=== PATIENT | female | born 1945 | race Caucasian/White ===

== ENCOUNTER 2018-04-09 13:37 | Inpatient (IN) | payer MEDICARE, OTHER ==
[~2018-04-09] VITALS: Ht 152.4 cm; Wt 67.2 kg
[~2018-04-09 13:37] MED LIST: METF-480; QUIN5TAB
--- NOTE | 2018-04-09 14:37 | ERD ---
ER Documentation Chief Complaint Chief Complaint cp with left arm pain x today HPI The patient is a 73-year-old female, presenting to the ER because of chronic left-sided chest pain radiating down to her left upper extremity for more than 6 months, worse last night. 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 Nicholas today who sent her to emergency department. She has had a cold for the last 4 days, denies fever, chills, neck pain, chest pain with vomiting/radiation/exertion/diaphoresis, complains of chronic left upper quadrant abdominal pain, denies dysuria, diarrhea, constipation. She does not smoke nor drink Past medical history: Hypertension, diabetes mellitus Past surgical history: Hysterectomy ROS All systems reviewed and are negative except as per history of present illness. Medications Home Meds Reported Medications Quinapril Hcl (Accupril) 5 Mg Tablet, 2X DAILY 10/20/10 Metformin* (Glucophage*) 850 Mg Tablet, DAILY 10/20/10 Allergies Allergies: Coded Allergies: acetaminophen (Verified Adverse Reaction, Mild, 10/20/10) PMhx/Soc History of Surgery: No Anesthesia Reaction: No Hx Neurological Disorder: No Hx Respiratory Disorders: No Hx Cardiac Disorders: Yes (HTN) Hx Psychiatric Problems: No Hx Miscellaneous Medical Probl: No Hx Alcohol Use: No Hx Substance Use: No Hx Tobacco Use: No Physical Exam Vitals Vital Signs Date Temp Pulse Resp B/P (MAP) Pulse Ox O2 O2 Flow FiO2 Time Delivery Rate 04/09/18 101 16 113/51 98 Room Air 18:11 (71) 04/09/18 112 16 91/63 (72) 99 Room Air 15:52 04/09/18 98.9 130 24 134/71 96 13:46 (92) Physical Exam Const: No acute distress. Head: Atraumatic. Eyes: Normal Conjunctiva. ENT: Normal External Ears, Nose and Mouth. Neck: Full range of motion. No meningismus. Resp: Clear to auscultation bilaterally. Cardio: Regular tachycardic Abd: Soft, non distended, normal bowel sounds, mild left upper quadrant discomfort, no rigidity/rebound/CVA tenderness Skin: No petechiae or rashes. Back: No midline or flank tenderness. Ext: No cyanosis, or edema. Neur: Awake and alert. No focal deficit Psych: Normal Mood and Affect. Result Diagram: 04/09/18 1507 04/09/18 1507 Results 24 hrs Laboratory Tests Test 04/09/18 15:07 04/09/18 15:26 White Blood Count 12.8 10^3/ul Red Blood Count 4.60 10^6/ul Hemoglobin 13.4 g/dl Hematocrit 40.9 % Mean Corpuscular Volume 88.9 fl Mean Corpuscular Hemoglobin 29.1 pg Mean Corpuscular Hemoglobin Concent 32.8 g/dl Red Cell Distribution Width 13.9 % Platelet Count 313 10^3/UL Mean Platelet Volume 10.3 fl Immature Granulocytes % 0.300 % Neutrophils % 85.8 % Lymphocytes % 10.2 % Monocytes % 3.3 % Eosinophils % 0.2 % Basophils % 0.2 % Nucleated Red Blood Cells % 0.0 /100WBC Immature Granulocytes # 0.040 10^3/ul Neutrophils # 11.0 10^3/ul Lymphocytes # 1.3 10^3/ul Monocytes # 0.4 10^3/ul Eosinophils # 0.0 10^3/ul Basophils # 0.0 10^3/ul Nucleated Red Blood Cells # 0.0 10^3/ul Prothrombin Time 11.9 Sec Prothrombin Time Ratio 0.9 INR International Normalized Ratio 0.87 Activated Partial Thromboplast Time 31.8 Sec D-Dimer 974.87 ng/ml D-Dimer Comment Sodium Level 140 mmol/L Potassium Level 4.2 mmol/L Chloride Level 103 mmol/L Carbon Dioxide Level 23 mmol/L Anion Gap 14 Blood Urea Nitrogen 18 mg/dl Creatinine 0.56 mg/dl Est Glomerular Filtrat Rate mL/min mL/min Glucose Level 145 mg/dl Calcium Level 9.7 mg/dl Total Bilirubin 0.2 mg/dl Direct Bilirubin 0.00 mg/dl Indirect Bilirubin 0.2 mg/dl Aspartate Amino Transf (AST/SGOT) 34 IU/L Alanine Aminotransferase (ALT/SGPT) 30 IU/L Alkaline Phosphatase 129 IU/L Troponin I < 0.012 ng/ml B-Type Natriuretic Peptide 76 PG/ML Total Protein 8.8 g/dl Albumin 4.6 g/dl Globulin 4.20 g/dl Albumin/Globulin Ratio 1.09 Bedside Urine pH (LAB) 6.5 Bedside Urine Protein (LAB) 1+ Bedside Urine Glucose (UA) Negative Bedside Urine Ketones (LAB) Trace Bedside Urine Blood 1+ Bedside Urine Nitrite (LAB) Negative Bedside Urine Leukocyte Esterase (L Negative Current Medications Medications Dose Sig/Mary Start Time Status Last (Trade) Ordered Route PRN Stop Time Admin Dose Reason Admin Aspirin 324 mg ONCE ONCE 04/09/18 DC 04/09/18 (Aspirin) PO 15:00 04/09/18 15:17 15:01 1 inch ONCE ONCE 04/09/18 DC 04/09/18 Nitroglycerin TD 15:00 04/09/18 15:17 15:01 (Nitroglyceri n 2% Oint) Sodium 1,000 ml @ Q1H ONCE 04/09/18 DC 04/09/18 Chloride 1,000 mls/hr IV 16:00 04/09/18 16:10 16:59 Iohexol 100 ml @ ud STK-MED 04/09/18 DC 04/09/18 ONCE .ROUTE 16:52 04/09/18 17:06 16:53 IV Flush 10 ml STK-MED 04/09/18 DC 04/09/18 (NS 10 ml) ONCE .ROUTE 16:52 04/09/18 17:06 16:53 Sodium 100 ml @ ud STK-MED 04/09/18 DC 04/09/18 Chloride ONCE .ROUTE 16:52 04/09/18 17:06 16:53 Procedures/[place] [address] Radiology Main Line: [phone] DIAGNOSTIC IMAGING REPORT Patient: TU HERNANDEZ : 1945 Age: 73 Sex: F MR #: [id number] DOS: 04/09/18 1617 Ordering MD: RITA COSME MD Location: E/R Room/Bed: PROCEDURE: CTA Chest. CLINICAL INDICATION: Chest pain TECHNIQUE: The study was performed utilizing a multidetector CT scanner. Direct spiral 1 mm axial sections were obtained from the thoracic inlet to the upper abdomen with the use of 100 cc of Omnipaque 350 nonionic intravenous contrast material and reformatted at 3 mm. Coronal, sagittal and 3-D angiographic reformations were obtained. The images were reviewed on a PACS workstation. CT D I 34 mCi Dose 444 mGy/cm Individualized dose optimization technique was used for the performance of this exam. This included 1. Automated exposure control. 2. Adjustment of the mA and / or kV according to the patient's size. 3. Use of iterative reconstruction technique. COMPARISON: No prior studies are available for comparison. FINDINGS: There is no central or peripheral pulmonary embolism. Thoracic aorta is normal with no dissection or aneurysm. No lung infiltrate or mass is seen. There is no hilar or mediastinal adenopathy or mass. Calcified nonenlarged right hilar nodes are seen. There is a hiatal hernia. Noted are coronary artery calcifications. There is fibronodular scarring with bronchiectasis in the superior segment of the right lower lobe. No pleural or pericardial effusion is visualized. There is no pneumothorax. No upper abdominal or adrenal mass is present. Noted is fatty infiltration of the liver. The osseous structures appear normal. IMPRESSION: No pulmonary embolism. No thoracic aortic aneurysm or dissection. No pneumonia. Old granulomatous disease. Fibronodular scarring superior segment right lower lobe. Hiatal hernia. Fatty liver. Coronary artery calcifications. .Omero Garcia MD, MD Date Time Electronically viewed and signed by .Omero Garcia MD, MD on 04/09/2018 17:35 .A/ CC: RITA COSME MD [id number] [place] [id number] Radiology Main Line: [phone] DIAGNOSTIC IMAGING REPORT Patient: TU HERNANDEZ : 1945 Age: 73 Sex: F MR #: [id number] DOS: 04/09/18 1455 Ordering MD: RITA COSME MD Location: E/R Room/Bed: PROCEDURE: XR Chest. CLINICAL INDICATION: Shortness of breath TECHNIQUE: Single frontal view of the chest was obtained COMPARISON: None FINDINGS: The heart and mediastinum are within normal limits. There is a right lower lobe calcified granuloma measuring 10 mm. There is no focal infiltrate. There is no pleural effusion or pneumothorax. RPTAT: AA IMPRESSION: No acute disease. Small right lower lobe calcified granuloma. .Jeancarlos Bryant MD, Date Time Electronically viewed and signed by .Jeancarlos Bryant MD, on 04/09/2018 15:38 .S/ CC: RITA COSME MD [id number] EKG: Read by emergency physician Rate/Rhythm: Sinus tachycardia 119 beats/min QRS, ST, T-waves: No ST elevation, no T inversion Impression: Abnormal EKG MEDICAL MAKING DECISION: The patient is a 73-year-old, presenting with acute on chronic chest pain with tachycardia, concerning for acute ACS. She was treated with aspirin 325 mg p.o. and 1 inch of nitroglycerin ointment to the chest wall for acute chest pain with good response. The differential diagnoses considered include but are not limited to pericardial effusion, acute coronary syndrome, acute myocardial infarction, pericarditis, pulmonary embolism, aortic dissection, pneumonia, pleural effusion, pneumothorax, GERD, chest wall pain. Departure Diagnosis: Primary Impression: Chest pain Additional Impressions: Hematuria Hiatal hernia Condition: Stable Comments I have paged her new autos delivery driver Dr. Nicholas I discussed the findings with the patient. I discussed the patient with the hospitalist Dr Villarreal . who was made aware of the lab, the treatment, the patient condition. The patient is admitted to [facility] Disclaimer: Inadvertent spelling and grammatical errors are likely due to EHR/dictation software use and do not reflect on the overall quality of patient care. Also, please note that the electronic time recorded on this note does not necessarily reflect the actual time of the patient encounter. RITA COSME MD Apr 09, 2018 14:37
[2018-04-09] MEDS ORDERED: ASPIRIN 81 MG TAB PO ONE (15:00)
[2018-04-09] MEDS ORDERED: NITROGLYCERIN 2% 1 GM OINT PKT TD ONE (15:00)
[2018-04-09] MEDS ORDERED: SOD CHLORIDE 0.9% 1,000 ML IV ONE (16:00)
[2018-04-09] MEDS ORDERED: SOD CHLORIDE 0.9% 100 ML ONE (16:52)
[2018-04-09] MEDS ORDERED: IOHEXOL 100 ML ONE (16:52)
[2018-04-09] MEDS ORDERED: NACL 0.9% 3 ML SYG IV SCH (19:30)
[2018-04-09] MEDS ORDERED: DOCUSATE SODIUM 100 MG CAP PO PRN (19:30)
[2018-04-09] MEDS ORDERED: LORAZEPAM 4 MG/ML VIAL IV PRN (19:30)
[2018-04-09] MEDS ORDERED: MAGNESIUM HYDROXIDE 30ML CUP PO PRN (19:30)
[2018-04-09] MEDS ORDERED: ONDANSETRON 4 MG INJ IV PRN (19:30)
[2018-04-09] MEDS ORDERED: NITROGLYCERIN (SL) 0.4 MG TAB SL PRN (19:30)
[2018-04-09] MEDS ORDERED: KETOROLAC 15 MG INJ IV PRN (19:30)
[2018-04-09 20:00] VITALS: PULSE 91
--- NOTE | 2018-04-09 20:09 | HP ---
Date/Time of Note Date/Time of Note DATE: 04/09/18 TIME: 20:09 Assessment/Plan VTE Prophylaxis Pharmacological prophylaxis: LMWH Lines/Catheters IV Catheter Type (from Nrs): Saline Lock Assessment/Plan Hospital Course This is a 73-year female being admitted to the telemetry floor for observation for: #1 chest pain: Rule out ACS versus anginal equivalent: Patient has had persistent symptoms for 6 months however yesterday her symptoms got worse. EKG at the current time is nonischemic, CT of the chest did not show any signs of pulmonary embolism. Will trend cardiac enzymes x3, will check an echocardiogram. Patient's electronics maintenance technician has been consulted by the ED. #2 Diabetes mellitus: We will check hemoglobin A 1C, insulin sliding scale, hold home metformin #3 hypertension: PRN hydralazine, will need to confirm patient's home blood pressure medication dosage #4 hyperlipidemia: We will check lipid panel #5 DVT GI prophylaxis: SCDs, no GI prophylaxis indicated Further treatment strategy will be implemented as per the clinical course Result Diagram: 04/09/18 1507 04/09/18 1507 Results 24hrs Laboratory Tests Test 04/09/18 15:07 04/09/18 15:26 White Blood Count 12.8 H Red Blood Count 4.60 Hemoglobin 13.4 Hematocrit 40.9 Mean Corpuscular Volume 88.9 Mean Corpuscular Hemoglobin 29.1 Mean Corpuscular Hemoglobin Concent 32.8 Red Cell Distribution Width 13.9 Platelet Count 313 Mean Platelet Volume 10.3 Immature Granulocytes % 0.300 Neutrophils % 85.8 H Lymphocytes % 10.2 L Monocytes % 3.3 Eosinophils % 0.2 Basophils % 0.2 Nucleated Red Blood Cells % 0.0 Immature Granulocytes # 0.040 H Neutrophils # 11.0 H Lymphocytes # 1.3 Monocytes # 0.4 Eosinophils # 0.0 Basophils # 0.0 Nucleated Red Blood Cells # 0.0 Prothrombin Time 11.9 Prothrombin Time Ratio 0.9 INR International Normalized Ratio 0.87 Activated Partial Thromboplast Time 31.8 D-Dimer 974.87 H D-Dimer Comment Sodium Level 140 Potassium Level 4.2 Chloride Level 103 Carbon Dioxide Level 23 Anion Gap 14 H Blood Urea Nitrogen 18 Creatinine 0.56 Est Glomerular Filtrat Rate mL/min Glucose Level 145 Hemoglobin A1c 8.1 H Calcium Level 9.7 Total Bilirubin 0.2 Direct Bilirubin 0.00 Indirect Bilirubin 0.2 Aspartate Amino Transf (AST/SGOT) 34 Alanine Aminotransferase (ALT/SGPT) 30 Alkaline Phosphatase 129 H Troponin I < 0.012 B-Type Natriuretic Peptide 76 Total Protein 8.8 H Albumin 4.6 Globulin 4.20 H Albumin/Globulin Ratio 1.09 Bedside Urine pH (LAB) 6.5 Bedside Urine Protein (LAB) 1+ H Bedside Urine Glucose (UA) Negative Bedside Urine Ketones (LAB) Trace H Bedside Urine Blood 1+ H Bedside Urine Nitrite (LAB) Negative Bedside Urine Leukocyte Esterase (L Negative HPI/ROS Admit Date/Time Admit Date/Time Hx of Present Illness Chief complaint: Left-sided chest pain x6 The patient is a 73-year-old female, presenting to the ER because of chronic left-sided chest pain radiating down to her left upper extremity for more than 6 months, worse last night. She went to see her electronics maintenance technician Dr. Nicholas today who sent her to emergency department. She has had a cold for the last 4 days, denies fever, chills, neck pain, chest pain with vomiting/r adiation/exertion/diaphoresis, complains of chronic left upper quadrant abdominal pain, denies dysuria, diarrhea, constipation. Allergies: Acetaminophen Medications: See May Const: As per HPI Eyes : No pain discharge or redness or change in visual acuity ENT: No pain, sore throat, congestion, congestion, dysphagia or discharge Respiratory: No shortness of breath, cough, sputum, wheezing, or pleuritic pain Cardiovascular: As per HPI GI : no change in appetite, abdominal pain, nausea, vomiting, diarrhea, constipation, or change in the color his stool Genitourinary: No dysuria, hematuria, flank pain , discharge or CVA tenderness Musculoskeletal: No joint pain, back pain, neck pain, restricted range of motion in neck or joints Skin: No rash, bruising or hives Neuro: No headache, dizziness, syncope, seizure, focal weakness Endocrine: No polyuria, polydipsia, temperature intolerance Psych: No hallucination, depression, anxiety or suicidal ideation PMH/Family/Social Past Medical History Hyperlipidemia, hypertension, diabetes mellitus Medications Current Medications IV Flush (NS 3 ml) 3 ml PER PROTOCOL IV ; Start 04/09/18 at 19:30 Lorazepam (Ativan) 0.5 mg Q6H PRN IV ANXIETY; Start 04/09/18 at 19:30 Ondansetron HCl (Zofran Inj) 4 mg Q6H PRN IV NAUSEA AND/OR VOMITING; Start 04/09/18 at 19:30 Aspirin (Aspirin) 81 mg DAILY PO ; Start 04/10/18 at 09:00 Nitroglycerin (Nitroglycerin (Sl Tab) 0.4 Mg) 1 tab Q5M PRN SL CHEST PAIN; Start 04/09/18 at 19:30 Docusate Sodium (Colace) 100 mg Q12H PRN PO CONSTIPATION; Start 04/09/18 at 19:30 Magnesium Hydroxide (Milk Of Mag) 30 ml DAILY PRN PO CONSTIPATION; Start 04/09/18 at 19:30 Pantoprazole (Protonix Iv) 40 mg DAILY@06 IV ; Start 04/10/18 at 06:00 Enoxaparin Sodium (Lovenox) 40 mg DAILY SC ; Start 04/10/18 at 09:00 Ketorolac Tromethamine (Toradol) 15 mg Q6H PRN IV PAIN LEVEL 1-3; Start 04/09/18 at 19:30; Stop 04/12/18 at 19:29 Tramadol HCl (Ultram) 50 mg Q6H PRN PO MODERATE PAIN LEVEL 4-6; Start 04/09/18 at 19:30 Atorvastatin Calcium (Lipitor) 10 mg HS PO ; Start 04/09/18 at 21:00 Coded Allergies: acetaminophen (Verified Adverse Reaction, Mild, 10/20/10) Past Surgical History Hysterectomy Family History Significant Family History: no pertinent family hx Social History Alcohol Use: none Smoking Status: Never smoker Drug Use: none Exam/Review of Systems Vital Signs Vitals Vital Signs Date Temp Pulse Resp B/P (MAP) Pulse Ox O2 O2 Flow FiO2 Time Delivery Rate 04/09/18 101 16 113/51 98 Room Air 18:11 (71) 04/09/18 98.9 13:46 Exam Exam General: Patient is a pleasant female currently lying in bed in no acute distress HEENT: Atraumatic, normocephalic. The pupils are equal, round and reactive. Extraocular motor are intact Neck: Supple with full range of motion. No rigidity or meningismus Chest: Nontender Lungs: Clear to auscultation bilaterally no crackles rales or wheezing Heart: Normal S1-S2, Regular rhythm and rate no murmurs appreciated auscultation Abdomen: Soft , nontender, nondistended , bowel sounds are present. No guarding no rebound tenderness , No masses or organomegaly. No costovertebral temporal angle mass Extremities: Normal to inspection, no edema no cyanosis Neurologic: Normal mental status, speech normal, cranial nerves II through XII are intact, motor and sensory are intact, no focal weakness Additional Comments PROCEDURE: CTA Chest. CLINICAL INDICATION: Chest pain TECHNIQUE: The study was performed utilizing a multidetector CT scanner. Direct spiral 1 mm axial sections were obtained from the thoracic inlet to the u pper abdomen with the use of 100 cc of Omnipaque 350 nonionic intravenous contrast material and reformatted at 3 mm. Coronal, sagittal and 3-D angiographic reformations were obtained. The images were reviewed on a PACS workstation. CT D I 34 mCi Dose 444 mGy/cm Individualized dose optimization technique was used for the performance of this exam. This included 1. Automated exposure control. 2. Adjustment of the mA and / or kV according to the patient's size. 3. Use of iterative reconstruction technique. COMPARISON: No prior studies are available for comparison. FINDINGS: There is no central or peripheral pulmonary embolism. Thoracic aorta is normal with no dissection or aneurysm. No lung infiltrate or mass is seen. There is no hilar or mediastinal adenopathy or mass. Calcified nonenlarged right hilar nodes are seen. There is a hiatal hernia. Noted are coronary artery calcifications. There is fibronodular scarring with bronchiectasis in the superior segment of the right lower lobe. No pleural or pericardial effusion is visualized. There is no pneumothorax. No upper abdominal or adrenal mass is present. Noted is fatty infiltration of the liver. The osseous structures appear normal. IMPRESSION: No pulmonary embolism. No thoracic aortic aneurysm or dissection. No pneumonia. Old granulomatous disease. Fibronodular scarring superior segment right lower lobe. Hiatal hernia. Fatty liver. Coronary artery calcifications. .Omero Garcia MD, Date Time Electronically viewed and signed by .Omero Garcia MD, on 04/09/2018 17:35 .A/ CC: RITA COSME MD [id number] PROCEDURE: XR Chest. CLINICAL INDICATION: Shortness of breath TECHNIQUE: Single frontal view of the chest was obtained COMPARISON: None FINDINGS: The heart and mediastinum are within normal limits. There is a right lower lobe calcified granuloma measuring 10 mm. There is no focal infiltrate. There is no pleural effusion or pneumothorax. RPTAT: AA IMPRESSION: No acute disease. Small right lower lobe calcified granuloma. .Jeancarlos Bryant MD, MD Date Time Electronically viewed and signed by .Jeancarlos Bryant MD, MD on 04/09/2018 15:38 .S/ CC: RITA COSME MD [id number] EKG: Rate/Rhythm: Sinus tachycardia 119 beats/min QRS, ST, T-waves: No ST elevation, no T inversion MIKE COSBY Apr 09, 2018 20:09
[2018-04-09 21:00] VITALS: BP 114/60; PULSE 91; RESP 20; Ht 152.4 cm; Wt 67.2 kg
[2018-04-09] MEDS ORDERED: ATORVASTATIN 10 MG TAB PO SCH (21:00)
[2018-04-09] MEDS: INSULIN ASPART [NOVOLOG] 3 ML PEN SC SCH (21:00)
[2018-04-09] MEDS ORDERED: DEXTROSE 50% 50 ML SYRINGE IV PRN ×2 (22:00)
[2018-04-09] MEDS ORDERED: GLUCOSE GEL 15 GRAM TUBE PO PRN ×2 (22:00)
[2018-04-09] MEDS ORDERED: GLUCAGON 1 MG INJ IM PRN (22:00)
[2018-04-09] MEDS ORDERED: GLUCOSE GEL 15 GRAM TUBE BUCCAL PRN (22:00)
[2018-04-10] VITALS (10 sets, daily range): BP systolic 109–134; BP diastolic 54–83; PULSE 62–112; RESP 18–20
[2018-04-10] MEDS: ACCU-CHEK XX SCH (02:00)
[2018-04-10] MEDS: traMADol 50 MG TAB PO PRN (05:31)
[2018-04-10] MEDS ORDERED: PANTOPRAZOLE 40 MG INJ IV SCH (06:00)
[2018-04-10] MEDS: INSULIN ASPART [NOVOLOG] 3 ML PEN SC SCH ×4 (08:00→21:20)
[2018-04-10] MEDS: ASPIRIN 81 MG TAB PO SCH (08:17)
[2018-04-10] MEDS: ENOXAPARIN 40 MG/0.4 ML SYG SC SCH (08:22)
--- NOTE | 2018-04-10 10:54 | PN ---
Date/Time of Note Date/Time of Note DATE: 04/10/18 TIME: 10:53 Assessment/Plan VTE Prophylaxis Risk score (from Nsg)>0 risk: 3 SCD applied (from Nsg): Yes Pharmacological prophylaxis: LMWH Lines/Catheters IV Catheter Type (from Nrsg): Saline Lock Urinary Cath still in place: No Assessment/Plan Hospital Course SUBJECTIVE: Lying in bed comfortably. No chest pain, palpitation, shortness of breath or others. OBJECTIVE: Vital signs-see below PHYSICAL EXAM: Constitutional: Well-developed, adequately built, lying in bed comfortably. Psych: nl mood/affect, no complaints Head: atraumatic, normocephalic Eyes: nl conjunctiva, nl sclera ENMT: mucosa pink and moist, nl external ears & nose Neck: non-tender, supple Respiratory: clear to auscultation, normal air movement Cardiovascular: nl pulses, regular rate and rhythm Gastrointestinal: non-tender, soft, bowel sounds active in all 4 quadrants. Musculoskeletal/extremities: nl extremities to inspection, motor strength equal bilaterally, no focal deficit. Normal pulses,no cyanosis, no edema. 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 1. Chest pain, rule out ACS versus other -Currently no symptoms -Serial troponins and EKG negative for acute ischemic events. -Continue aspirin prophylaxis and follow-up cardiology recommendations. 2. DMII -A1c 8.1 -Continue holding metformin. -Add Lantus. Continue ISS. DVT prophylaxis: Lovenox PUD prophylaxis: Not indicated CODE STATUS: Full code Diet: Low-cholesterol/low-fat diet. Disposition: Follow-up cardiology recommendations. Patient was seen in collaboration with Dr. Villarreal. Result Diagram: 04/10/18 0533 04/10/1833 Results 24hrs Laboratory Tests Test 04/09/18 15:07 04/09/18 15:26 04/09/18 21:20 04/09/18 21:56 White Blood Count 12.8 H Red Blood Count 4.60 Hemoglobin 13.4 Hematocrit 40.9 Mean Corpuscular Volume 88.9 Mean Corpuscular 29.1 Hemoglobin Mean Corpuscular 32.8 Hemoglobin Concent Red Cell Distribution 13.9 Width Platelet Count 313 Mean Platelet Volume 10.3 Immature Granulocytes % 0.300 Neutrophils % 85.8 H Lymphocytes % 10.2 L Monocytes % 3.3 Eosinophils % 0.2 Basophils % 0.2 Nucleated Red Blood 0.0 Cells % Immature Granulocytes # 0.040 H Neutrophils # 11.0 H Lymphocytes # 1.3 Monocytes # 0.4 Eosinophils # 0.0 Basophils # 0.0 Nucleated Red Blood 0.0 Cells # Prothrombin Time 11.9 Prothrombin Time Ratio 0.9 INR International 0.87 Normalized Ratio Activated 31.8 Partial Thromboplast Time D-Dimer 974.87 H D-Dimer Comment Sodium Level 140 Potassium Level 4.2 Chloride Level 103 Carbon Dioxide Level 23 Anion Gap 14 H Blood Urea Nitrogen 18 Creatinine 0.56 Est Glomerular Filtrat Rate mL/min Glucose Level 145 Hemoglobin A1c 8.1 H Calcium Level 9.7 Total Bilirubin 0.2 Direct Bilirubin 0.00 Indirect Bilirubin 0.2 Aspartate Amino 34 Transf (AST/SGOT) Alanine 30 Aminotransferase (ALT/SG PT) Alkaline Phosphatase 129 H Troponin I < 0.012 < 0.012 B-Type Natriuretic 76 Peptide Total Protein 8.8 H Albumin 4.6 Globulin 4.20 H Albumin/Globulin Ratio 1.09 Thyroid Stimulating 2.420 Hormone (TSH) Bedside Urine pH (LAB) 6.5 Bedside Urine Protein 1+ H (LAB) Bedside Urine Glucose Negative (UA) Bedside Urine Ketones Trace H (LAB) Bedside Urine Blood 1+ H Bedside Urine Nitrite Negative (LAB) Bedside Urine Negative Leukocyte Esterase (L Creatine Kinase 62 Creatine Kinase Index 0.5 Creatinine Kinase MB 0.29 (Mass) Bedside Glucose 179 Test 04/10/18 00:11 04/10/18 05:33 04/10/18 07:55 Creatine Kinase 65 Creatine Kinase Index 0.6 Creatinine Kinase MB 0.37 (Mass) Troponin I < 0.012 White Blood Count 6.7 # Red Blood Count 3.83 L Hemoglobin 11.3 L Hematocrit 34.2 L Mean Corpuscular Volume 89.3 Mean Corpuscular 29.5 Hemoglobin Mean Corpuscular 33.0 Hemoglobin Concent Red Cell Distribution 14.2 Width Platelet Count 236 # Mean Platelet Volume 10.6 H Immature Granulocytes % 0.300 Neutrophils % 77.0 Lymphocytes % 16.5 Monocytes % 5.2 Eosinophils % 0.7 Basophils % 0.3 Nucleated Red Blood 0.0 Cells % Immature Granulocytes # 0.020 Neutrophils # 5.2 Lymphocytes # 1.1 Monocytes # 0.4 Eosinophils # 0.1 Basophils # 0.0 Nucleated Red Blood 0.0 Cells # Sodium Level 141 Potassium Level 3.9 Chloride Level 107 Carbon Dioxide Level 24 Anion Gap 10 Blood Urea Nitrogen 23 H Creatinine 0.50 Est Glomerular Filtrat Rate mL/min Glucose Level 151 Calcium Level 9.0 Magnesium Level 2.1 Triglycerides Level 166 H Cholesterol Level 175 LDL Cholesterol, 104 Calculated HDL Cholesterol 38 Cholesterol/HDL Ratio 4.6 Bedside Glucose 194 Exam/Review of Systems Vital Signs Vitals Vital Signs Date Temp Pulse Resp B/P (MAP) Pulse Ox O2 O2 Flow FiO2 Time Delivery Rate 04/10/18 85 08:22 04/10/18 98.4 18 116/55 96 Room Air 07:32 (75) Intake and Output 04/09/18 04/09/18 04/10/18 1515:00 23:00 07:00 IntakeIntake Total 250 ml BalanceBalance 250 ml Medications Medications Current Medications IV Flush (NS 3 ml) 3 ml PER PROTOCOL IV ; Start 04/09/18 at 19:30 Lorazepam (Ativan) 0.5 mg Q6H PRN IV ANXIETY; Start 04/09/18 at 19:30 Ondansetron HCl (Zofran Inj) 4 mg Q6H PRN IV NAUSEA AND/OR VOMITING; Start 04/09/18 at 19:30 Aspirin (Aspirin) 81 mg DAILY PO Last administered on 04/10/18at 08:17; Admin Dose 81 MG; Start 04/10/18 at 09:00 Nitroglycerin (Nitroglycerin (Sl Tab) 0.4 Mg) 1 tab Q5M PRN SL CHEST PAIN; Start 04/09/18 at 19:30 Docusate Sodium (Colace) 100 mg Q12H PRN PO CONSTIPATION; Start 04/09/18 at 19:30 Magnesium Hydroxide (Milk Of Mag) 30 ml DAILY PRN PO CONSTIPATION; Start 04/09/18 at 19:30 Pantoprazole (Protonix Iv) 40 mg DAILY@06 IV Last administered on 04/10/18at 05:30; Admin Dose 40 MG; Start 04/10/18 at 06:00 Enoxaparin Sodium (Lovenox) 40 mg DAILY SC Last administered on 04/10/18at 08:22; Admin Dose 40 MG; Start 04/10/18 at 09:00 Ketorolac Tromethamine (Toradol) 15 mg Q6H PRN IV PAIN LEVEL 1-3 Last administered on 04/09/18at 20:13; Admin Dose 15 MG; Start 04/09/18 at 19:30; Stop 04/12/18 at 19:29 Tramadol HCl (Ultram) 50 mg Q6H PRN PO MODERATE PAIN LEVEL 4-6 Last administered on 04/10/18at 05:31; Admin Dose 50 MG; Start 04/09/18 at 19:30 Atorvastatin Calcium (Lipitor) 10 mg HS PO Last administered on 04/09/18at 22:01; Admin Dose 10 MG; Start 04/09/18 at 21:00 Diagnostic Test (Pha) (Accu-Chek) 1 ea 02 XX ; Start 04/10/18 at 02:00 Insulin Aspart (Novolog Insulin Pen) NOVOLOG *MILD* ALGORITHM WITH MEALS BEDTIME SC ; Start 04/09/18 at 21:00 Miscellaneous Information 1 ea NOTE XX ; Start 04/09/18 at 22:00 Glucose (Glutose) 15 gm Q15M PRN PO DECREASED GLUCOSE; Start 04/09/18 at 22:00 Glucose (Glutose) 22.5 gm Q15M PRN PO DECREASED GLUCOSE; Start 04/09/18 at 22:00 Dextrose (D50w Syringe) 25 ml Q15M PRN IV DECREASED GLUCOSE; Start 04/09/18 at 22:00 Dextrose (D50w Syringe) 50 ml Q15M PRN IV DECREASED GLUCOSE; Start 04/09/18 at 22:00 Glucagon (Glucagen) 1 mg Q15M PRN IM DECREASED GLUCOSE; Start 04/09/18 at 22:00 Glucose (Glutose) 15 gm Q15M PRN BUCCAL DECREASED GLUCOSE; Start 04/09/18 at 22:00 Influenza Virus Vaccine Quadrival (Fluzone) 0.5 ml ONCE ONCE IM* ; Start 04/11/18 at 10:00; Stop 04/11/18 at 10:01 DANNA PASTRANA NP Apr 10, 2018 10:54
--- NOTE | 2018-04-10 16:25 | CONS ---
DATE OF ADMISSION: 04/09/2018 DATE OF CONSULTATION: 04/10/2018 TYPE OF CONSULTATION: Cardiology. REASON FOR CONSULTATION: Chest pain, assess for acute coronary syndrome. REQUESTING PROVIDER: Corina Pastrana NP, from the hospitalist service. HISTORY OF PRESENT ILLNESS: Ms. Pappas is a 73-year-old female with history of diabetes mellitus, dyslipidemia, who presents with complaints of substernal chest pain. The patient describes chest pain as a stabbing sensation occurring at rest and with exertion. 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 Upon arrival, temperature was 98.9, blood pressure 134/71, pulse 130, respiratory rate 24, satting 96%. The patient's labs were notable for white blood cell count of 12.8, hemoglobin of 13.4, platelet count 313, sodium of 140, potassium 4.2, creatinine 0.5, BUN 18, alkaline phosphatase 129, troponin negative, BNP 76, TSH of 2.42, INR of 0.87. UA is negative. The patient underwent a venous ultrasound revealing no evidence of DVT of the bilateral lower extremities. A chest x-ray revealing no acute disease, small right lower lobe calcified granuloma and a CTA of the chest revealed no central or peripheral pulmonary embolism. Thoracic aorta was normal with no dissection or aneurysm. No infiltrate. No mass is seen. No hilar or mediastinal adenopathy. No pericardial effusion. Fibronodular bronchiectasis in superior segment of the right lower lobe. The patient's electrocardiogram is not in chart for my review at this time. The patient was subsequently admitted to the floor and since admit to the floor, has had 2 further troponins returned negative for a total of 3 troponins although last 2 or 3 hours apart. The patient denies ongoing chest pain at this time. PAST MEDICAL HISTORY: As above in HPI. MEDICATIONS CURRENTLY IN HOSPITAL: 1. Aspirin 81 mg daily. 2. Lovenox 40 mg subQ daily. 3. Insulin sliding scale. 4. Lipitor 10 mg at bedtime. 5. Ativan. 6. Zofran. 7. Nitroglycerin. 8. Toradol. 9. Ultram. ALLERGIES: TYLENOL. SOCIAL HISTORY: No current tobacco, EtOH or illicit drug use. FAMILY HISTORY: No history of sudden cardiac or early CAD. REVIEW OF: As above in HPI. CONSTITUTIONAL: No fevers, chills. PULMONARY: No current shortness of breath. CARDIOVASCULAR: Intermittent chest pain. GASTROINTESTINAL: No vomiting. GENITOURINARY: No hematuria. MUSCULOSKELETAL: Degenerative joint disease. PSYCHIATRIC: The patient has depression. NEUROLOGICAL: No documented history of CVA. PHYSICAL EXAMINATION VITAL SIGNS: Temperature of 98.3, blood pressure most recently 124/83, pulse 62, respiratory rate 20, satting 96% on room air. GENERAL: The patient is alert, awake, in no acute distress. NECK: JVP is approximately 8 to 9 cm of water. CHEST: Fair air movement throughout. HEART: Regular rate and rhythm. Normal S1, S2, I/ systolic murmur, nondisplaced PMI. ABDOMEN: Positive bowel sounds, soft. EXTREMITIES: No significant pitting edema, 1+ pulses bilateral posterior tibial. LABORATORIES: Sodium 141, potassium 3.9, creatinine 0.5, BUN 23. White blood cell count 6.7, hemoglobin 11.3, platelet count 236. IMAGING STUDIES: As above in HPI. No further imaging studies for my review at this time. ELECTROCARDIOGRAM: No electrocardiograms for my review at this time. IMPRESSION: 1. Chest pain, assess for acute coronary syndrome with at this time atypical symptomatology for cardiac etiology. 2. Dyslipidemia. 3. Diabetes mellitus. RECOMMENDATIONS: 1. At this time, we would maintain the patient on telemetry monitoring to follow rhythm and rate control closely. 2. Continue the patient's aspirin for prophylactic cardiovascular events. 3. We will give patient some nitroglycerin and I agree with Toradol and therefore start the patient on NSAIDs and follow up symptomatology for possible costochondritis. 4. We will follow patient's 2D echo done for assessment of ejection fraction, wall motion, rule out any major valvular abnormalities. 5. We will send one final troponin to assure the patient has not had any acute coronary syndrome. 6. The patient is status post fasting lipid panel with an LDL of 104 and HDL of 38. We will have continue baseline statin at this time and increase it to 20. 7. Further recommendations pertaining to the care of this patient will be made after completion of studies including final troponin and 2D echo analysis as well as serial EKGs. Thank you for allowing me to take part in the care of this patient. I will continue to follow her very closely with you with further recommendations to be made as the patient progresses through her inpatient hospital clinical course. Dictated By: PANFILO MCLEAN/CAMILLE Conf#: [id number] DID#: [id number] CC: RAJI MENDEZ MD; CORINA PASTRANA BOOKSTORE MANAGER;*EndCC* MTDD
[2018-04-10] MEDS ORDERED: IBUPROFEN 400 MG TAB PO ONE (16:37)
[2018-04-10] MEDS: ACETAMINOPHEN 325 MG TAB PO PRN (16:40)
--- NOTE | 2018-04-10 17:39 | RADRPT ---
Echocardiogram Report Patient Name: TU HERNANDEZ Gender: Female Date: 1945 Study Date: 10-Apr-2018 Dot Etcher: TB Location: [id number] Ref. Physician: RAJI MENDEZ Quality: Adequate Procedures: Transthoracic echocardiogram with complete 2D, M-Mode, and doppler examination. Indications: Chest Pain. 2D/M Mode Doppler Measurement Value Normal Ranges Measurement Value Normal Ranges AoR Diam MM 3.6 cm AV Mean Humberto 0.9 m/sec ACS MM 1.9 cm AV Mean PG 4.0 mmHg LA/Ao MM 0.9 AV Peak Humberto 1.5 m/sec LA Dimen MM 3.4 cm AV Peak PG 8.0 mmHg LVIDd 2D 3.8 3.5 - 5.6 cm AV VTI 27.0 cm LVIDs 2D 2.6 2.1 - 4.1 cm LVOT Mean Humberto 0.9 m/sec LVPWd 2D 0.8 0.6 - 1.1 cm LVOT Mean PG 3.0 mmHg IVSd 2D 1.1 0.6 - 1.1 cm LVOT Peak Humberto 1.3 m/sec AoR Diam 2D 2.4 2.0 - 3.7 cm LVOT Peak PG 7.0 mmHg LA/Ao 2D 2 0 - 1 MV E Peak Humberto 0.8 m/sec EF 2D 61.0 50.0 - 65.0 % MV A Peak Humberto 1.1 m/sec LA Dimen 2D 3.6 2.3 - 4.0 cm MV E/A 0.7 IVC Diam 1.7 1.2 - 2.0 MV PHT 86.0 msec MV Decel Time 293 msec MV Decel [place] 3 Lat E` Humberto 0.1 m/sec Lateral E/E` 10.6 Med E` Humberto 0.1 m/sec MV E/A 0.7 MV PHT 86.0 msec MVA PHT 2.6 cm2 TR Peak Humberto 2.5 m/sec TR Peak PG 25.0 mmHg PV Peak Humberto 1.1 m/sec PV Peak PG 5.0 mmHg RVSP 28.0 mmHg RA Pressure 3.0 Findings Left Ventricle: Normal left ventricular systolic function. Normal left ventricular cavity size. Normal left ventricular wall thickness. Ejection fraction is visually estimated at 60 %. Right Ventricle: Not well visualized. Left Atrium: The left atrium is normal in size. Right Atrium: The right atrium is normal in size. Mitral Valve: Normal appearance and function of the mitral valve with trace physiologic regurgitation. Aortic Valve: Normal appearance of the aortic valve. No significant aortic stenosis or insufficiency. Tricuspid Valve: Normal appearance and function of the tricuspid valve with trace physiologic regurgitation. Normal right ventricular systolic pressure. Estimated peak PA systolic pressure 28 mmHg. Pulmonic Valve: Normal pulmonic valve appearance. Pericardium: Normal pericardium with no significant pericardial effusion. Aorta: Normal aortic root. IVC: Normal size and normal respiratory collapse consistent with normal right atrial pressure. Conclusions Normal left ventricular systolic function. Normal left ventricular cavity size. Normal left ventricular wall thickness. Ejection fraction is visually estimated at 60 %. Normal appearance and function of the mitral valve with trace physiologic regurgitation. Normal appearance and function of the tricuspid valve with trace physiologic regurgitation. Normal right ventricular systolic pressure. Estimated peak PA systolic pressure 28 mmHg. Electronically Signed By: Cory Mckoy 10-Apr-2018 17:38:32 -0800 Patient Name: TU HERNANDEZ Study Date: 10-Apr-2018 [id number]
[2018-04-10] MEDS: INSULIN GLARGINE [LANTus] (100 UNITS/ML) SYG SC SCH (20:00)
[2018-04-10] MEDS: ATORVASTATIN 20 MG TAB PO SCH (21:11)
[2018-04-11] VITALS (12 sets, daily range): BP systolic 114–134; BP diastolic 55–81; PULSE 69–95; RESP 18–20
[2018-04-11] MEDS: ACETAMINOPHEN 325 MG TAB PO PRN (00:26)
[2018-04-11] MEDS: ACCU-CHEK XX SCH (02:00)
[2018-04-11] MEDS: INSULIN ASPART [NOVOLOG] 3 ML PEN SC SCH ×4 (07:53→21:00)
[2018-04-11] MEDS: INSULIN GLARGINE [LANTus] (100 UNITS/ML) SYG SC SCH (07:53)
[2018-04-11] MEDS: ASPIRIN 81 MG TAB PO SCH (08:55)
[2018-04-11] MEDS: ENOXAPARIN 40 MG/0.4 ML SYG SC SCH (08:58)
[2018-04-11] MEDS ORDERED: INFLUENZA VIRUS VACCINE 0.5 ML (DISPENSING) IM* ONE (10:00)
[2018-04-11] MEDS ORDERED: REGADENOSON 0.4 MG/5 ML SYG ONE (11:18)
--- NOTE | 2018-04-11 11:53 | PN ---
Date/Time of Note Date/Time of Note DATE: 04/11/18 TIME: 11:51 Assessment/Plan VTE Prophylaxis Risk score (from Ns)>0 risk: 2 [place] [facility] [place]CD contraindicated: patient refusal Pharmacological prophylaxis: LMWH Lines/Catheters IV Catheter Type (from [facility]): Saline Lock Urinary Cath still in place: No Assessment/Plan Hospital Course SUBJECTIVE: Patient had on and off fevers, low-grade yesterday. No chest pain. No abdominal pain, nausea, vomiting, diarrhea, dysuria, hematuria or other symptoms. OBJECTIVE: Vital signs-see below PHYSICAL EXAM: Constitutional: Well-developed, adequately built, lying in bed comfortably. Psych: nl mood/affect, no complaints Head: atraumatic, normocephalic Eyes: nl conjunctiva, nl sclera ENMT: mucosa pink and moist, nl external ears & nose Neck: non-tender, supple Respiratory: clear to auscultation, normal air movement Cardiovascular: nl pulses, regular rate and rhythm Gastrointestinal: non-tender, soft, bowel sounds active in all 4 quadrants. Musculoskeletal/extremities: nl extremities to inspection, motor strength equal bilaterally, no focal deficit. Normal pulses,no cyanosis, no edema. 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 1. Chest pain, rule out ACS versus other -No further CP. -Serial troponins and EKG negative for acute ischemic events. -Plan is stress test today. -Continue aspirin prophylaxis and follow-up cardiology recommendations. 2. DMII -A1c 8.1 -Continue holding metformin. -Add Lantus. Continue ISS. 3. Mild low-grade fevers, likely viral. -Improved -Patient with no other symptoms, no leukocytosis. Pending blood cultures and repeat urine cultures. -No indication for antibiotic at this time. DVT prophylaxis: Lovenox PUD prophylaxis: Not indicated CODE STATUS: Full code Diet: Low-cholesterol/low-fat diet. Disposition: Follow-up cardiology recommendations. Follow-up blood cultures. DC planning in a.m. if negative blood cultures and negative stress of study. Patient was seen in collaboration with Dr. Casper Result Diagram: 04/11/18 0514 04/11/18 0514 Results 24hrs Laboratory Tests Test 04/10/18 15:05 04/10/18 17:15 04/10/18 18:30 04/10/18 21:10 Troponin I < 0.012 Bedside Glucose 161 201 Urine Color YELLOW Urine Clarity CLEAR Urine pH 5.0 Urine Specific [place] 1.019 Urine Ketones NEGATIVE Urine Nitrite NEGATIVE Urine Bilirubin NEGATIVE Urine Urobilinogen NEGATIVE Urine Leukocyte NEGATIVE Esterase Urine Microscopic RBC 1 Urine Microscopic WBC 1 Urine Mucus FEW A Urine Hemoglobin 1+ H Urine Glucose NEGATIVE Urine Total Protein NEGATIVE Test 04/11/18 05:14 04/11/18 07:45 White Blood Count 7.6 Red Blood Count 3.78 L Hemoglobin 11.2 L Hematocrit 33.5 L Mean Corpuscular 88.6 Volume Mean Corpuscular 29.6 Hemoglobin Mean Corpuscular 33.4 Hemoglobin Concent Red Cell Distribution 14.0 Width Platelet Count 218 Mean Platelet Volume 10.3 Immature Granulocytes 0.300 % Neutrophils % 76.0 Lymphocytes % 17.2 Monocytes % 5.5 Eosinophils % 0.7 Basophils % 0.3 Nucleated Red Blood 0.0 Cells % Immature Granulocytes 0.020 # Neutrophils # 5.8 Lymphocytes # 1.3 Monocytes # 0.4 Eosinophils # 0.1 Basophils # 0.0 Nucleated Red Blood 0.0 Cells # Sodium Level 140 Potassium Level 3.5 Chloride Level 104 Carbon Dioxide Level 24 Anion Gap 12 Blood Urea Nitrogen 20 Creatinine 0.47 Est Glomerular Filtrat Rate mL/min Glucose Level 162 Calcium Level 8.7 Magnesium Level 2.1 Bedside Glucose 180 Exam/Review of Systems Vital Signs Vitals Vital Signs Date Temp Pulse Resp B/P (MAP) Pulse Ox O2 O2 Flow FiO2 Time Delivery Rate 04/11/18 78 08:29 04/11/18 98.3 18 114/59 98 08:08 (77) 04/11/18 Room Air 04:06 Intake and Output 04/10/18 04/10/18 04/11/18 1414:59 22:59 06:59 IntakeIntake Total 350 ml 200 ml BalanceBalance 350 ml 200 ml Medications Medications Current Medications IV Flush (NS 3 ml) 3 ml PER PROTOCOL IV ; Start 04/09/18 at 19:30 Lorazepam (Ativan) 0.5 mg Q6H PRN IV ANXIETY; Start 04/09/18 at 19:30 Ondansetron HCl (Zofran Inj) 4 mg Q6H PRN IV NAUSEA AND/OR VOMITING; Start 04/09/18 at 19:30 Aspirin (Aspirin) 81 mg DAILY PO Last administered on 04/11/18at 08:55; Admin Dose 81 MG; Start 04/10/18 at 09:00 Nitroglycerin (Nitroglycerin (Sl Tab) 0.4 Mg) 1 tab Q5M PRN SL CHEST PAIN; Start 04/09/18 at 19:30 Docusate Sodium (Colace) 100 mg Q12H PRN PO CONSTIPATION; Start 04/09/18 at 19:30 Magnesium Hydroxide (Milk Of Mag) 30 ml DAILY PRN PO CONSTIPATION; Start 04/09/18 at 19:30 Enoxaparin Sodium (Lovenox) 40 mg DAILY SC Last administered on 04/11/18at 08:58; Admin Dose 40 MG; Start 04/10/18 at 09:00 Ketorolac Tromethamine (Toradol) 15 mg Q6H PRN IV PAIN LEVEL 1-3 Last administered on 04/09/18at 20:13; Admin Dose 15 MG; Start 04/09/18 at 19:30; Stop 04/12/18 at 19:29 Tramadol HCl (Ultram) 50 mg Q6H PRN PO MODERATE PAIN LEVEL 4-6 Last administered on 04/10/18at 05:31; Admin Dose 50 MG; Start 04/09/18 at 19:30 Diagnostic Test (Pha) (Accu-Chek) 1 ea 02 XX ; Start 04/10/18 at 02:00 Insulin Aspart (Novolog Insulin Pen) NOVOLOG *MILD* ALGORITHM WITH MEALS BEDTIME SC ; Start 04/09/18 at 21:00 Miscellaneous Information 1 ea NOTE XX ; Start 04/09/18 at 22:00 Glucose (Glutose) 15 gm Q15M PRN PO DECREASED GLUCOSE; Start 04/09/18 at 22:00 Glucose (Glutose) 22.5 gm Q15M PRN PO DECREASED GLUCOSE; Start 04/09/18 at 22:00 Dextrose (D50w Syringe) 25 ml Q15M PRN IV DECREASED GLUCOSE; Start 04/09/18 at 22:00 Dextrose (D50w Syringe) 50 ml Q15M PRN IV DECREASED GLUCOSE; Start 04/09/18 at 22:00 Glucagon (Glucagen) 1 mg Q15M PRN IM DECREASED GLUCOSE; Start 04/09/18 at 22:00 Glucose (Glutose) 15 gm Q15M PRN BUCCAL DECREASED GLUCOSE; Start 04/09/18 at 22:00 Insulin Glargine (Lantus) 10 units DAILY@0800 SC ; Start 04/10/18 at 20:00 Atorvastatin Calcium (Lipitor) 20 mg HS PO Last administered on 04/10/18at 21:11; Admin Dose 20 MG; Start 04/10/18 at 21:00 Acetaminophen (Tylenol Tab) 650 mg Q6H PRN PO MILD PAIN(1-3)OR ELEVATED TEMP Last administered on 04/11/18at 00:26; Admin Dose 650 MG; Start 04/10/18 at 16:00 DANNA PASTRANA NP Apr 11, 2018 11:52
--- NOTE | 2018-04-11 12:15 | CONS ---
Date/Time of Note Date/Time of Note DATE: 04/11/18 TIME: 12:09 Assessment/Plan Assessment/Plan Hospital Course IMPRESSION: 1. Chest pain, assess for acute coronary syndrome with at this time atypical symptomatology for cardiac etiology.-neg trop x 3/ NL EF 2. Dyslipidemia. 3. Diabetes mellitus. Recc: -Tele -Continue asa/statin -Lexiscan stress test today and if no ischemia then ok for d/c from cardiac standpoint Result Diagram: 04/11/18 0514 04/11/18 0514 Results 24hrs Laboratory Tests Test 04/10/18 15:05 04/10/18 17:15 04/10/18 18:30 04/10/18 21:10 Troponin I < 0.012 Bedside Glucose 161 201 Urine Color YELLOW Urine Clarity CLEAR Urine pH 5.0 Urine Specific Distant 1.019 Urine Ketones NEGATIVE Urine Nitrite NEGATIVE Urine Bilirubin NEGATIVE Urine Urobilinogen NEGATIVE Urine Leukocyte NEGATIVE Esterase Urine Microscopic RBC 1 Urine Microscopic WBC 1 Urine Mucus FEW A Urine Hemoglobin 1+ H Urine Glucose NEGATIVE Urine Total Protein NEGATIVE Test 04/11/18 05:14 04/11/18 07:45 White Blood Count 7.6 Red Blood Count 3.78 L Hemoglobin 11.2 L Hematocrit 33.5 L Mean Corpuscular 88.6 Volume Mean Corpuscular 29.6 Hemoglobin Mean Corpuscular 33.4 Hemoglobin Concent Red Cell Distribution 14.0 Width Platelet Count 218 Mean Platelet Volume 10.3 Immature Granulocytes 0.300 % Neutrophils % 76.0 Lymphocytes % 17.2 Monocytes % 5.5 Eosinophils % 0.7 Basophils % 0.3 Nucleated Red Blood 0.0 Cells % Immature Granulocytes 0.020 # Neutrophils # 5.8 Lymphocytes # 1.3 Monocytes # 0.4 Eosinophils # 0.1 Basophils # 0.0 Nucleated Red Blood 0.0 Cells # Sodium Level 140 Potassium Level 3.5 Chloride Level 104 Carbon Dioxide Level 24 Anion Gap 12 Blood Urea Nitrogen 20 Creatinine 0.47 Est Glomerular Filtrat Rate mL/min Glucose Level 162 Calcium Level 8.7 Magnesium Level 2.1 Bedside Glucose 180 Consultation Date/Type/Reason Admit Date/Time Apr 09, 2018 at 17:46 Initial Consult Date 04/10/18 Type of Consult cardiology Reason for Consultation Chest pain Requesting Provider: DANNA PASTRANA NP Exam/Review of Systems Vital Signs Vitals Vital Signs Date Temp Pulse Resp B/P (MAP) Pulse Ox O2 O2 Flow FiO2 Time Delivery Rate 04/11/18 78 08:29 04/11/18 98.3 18 114/59 98 08:08 (77) 04/11/18 Room Air 04:06 Intake and Output 04/10/18 04/10/18 04/11/18 1515:00 23:00 07:00 IntakeIntake Total 350 ml 200 ml BalanceBalance 350 ml 200 ml Exam Review of Systems: CONSTITUTIONAL: No fevers, chills. PULMONARY: No sob CARDIOVASCULAR:intermittent chest pain GASTROINTESTINAL: No nausea/vomiting. GENITOURINARY: No hematuria/dysuria. MUSCULOSKELETAL: No myagias/arthalgias. PSYCHIATRIC: The patient denies depression. NEUROLOGIC: No weakness Constitutional: alert Psych: no complaints Head: normocephalic ENMT: mucosa pink and moist Neck: supple, jvd (9 cm water) Respiratory: clear to auscultation Cardiovascular: regular rate and rhythm Gastrointestinal: soft Musculoskeletal: muscle tone (normal) Extremities: edema (none) Neurological: other (No focal deficits) Medications Medications Current Medications IV Flush (NS 3 ml) 3 ml PER PROTOCOL IV ; Start 04/09/18 at 19:30 Lorazepam (Ativan) 0.5 mg Q6H PRN IV ANXIETY; Start 04/09/18 at 19:30 Ondansetron HCl (Zofran Inj) 4 mg Q6H PRN IV NAUSEA AND/OR VOMITING; Start 04/09/18 at 19:30 Aspirin (Aspirin) 81 mg DAILY PO Last administered on 04/11/18at 08:55; Admin Dose 81 MG; Start 04/10/18 at 09:00 Nitroglycerin (Nitroglycerin (Sl Tab) 0.4 Mg) 1 tab Q5M PRN SL CHEST PAIN; Start 04/09/18 at 19:30 Docusate Sodium (Colace) 100 mg Q12H PRN PO CONSTIPATION; Start 04/09/18 at 19:30 Magnesium Hydroxide (Milk Of Mag) 30 ml DAILY PRN PO CONSTIPATION; Start 04/09/18 at 19:30 Enoxaparin Sodium (Lovenox) 40 mg DAILY SC Last administered on 04/11/18at 08:58; Admin Dose 40 MG; Start 04/10/18 at 09:00 Ketorolac Tromethamine (Toradol) 15 mg Q6H PRN IV PAIN LEVEL 1-3 Last administered on 04/09/18at 20:13; Admin Dose 15 MG; Start 04/09/18 at 19:30; Stop 04/12/18 at 19:29 Tramadol HCl (Ultram) 50 mg Q6H PRN PO MODERATE PAIN LEVEL 4-6 Last administered on 04/10/18at 05:31; Admin Dose 50 MG; Start 04/09/18 at 19:30 Diagnostic Test (Pha) (Accu-Chek) 1 ea 02 XX ; Start 04/10/18 at 02:00 Insulin Aspart (Novolog Insulin Pen) NOVOLOG *MILD* ALGORITHM WITH MEALS BEDTIME SC ; Start 04/09/18 at 21:00 Miscellaneous Information 1 ea NOTE XX ; Start 04/09/18 at 22:00 Glucose (Glutose) 15 gm Q15M PRN PO DECREASED GLUCOSE; Start 04/09/18 at 22:00 Glucose (Glutose) 22.5 gm Q15M PRN PO DECREASED GLUCOSE; Start 04/09/18 at 22:00 Dextrose (D50w Syringe) 25 ml Q15M PRN IV DECREASED GLUCOSE; Start 04/09/18 at 22:00 Dextrose (D50w Syringe) 50 ml Q15M PRN IV DECREASED GLUCOSE; Start 04/09/18 at 22:00 Glucagon (Glucagen) 1 mg Q15M PRN IM DECREASED GLUCOSE; Start 04/09/18 at 22:00 Glucose (Glutose) 15 gm Q15M PRN BUCCAL DECREASED GLUCOSE; Start 04/09/18 at 22:00 Insulin Glargine (Lantus) 10 units DAILY@0800 SC ; Start 04/10/18 at 20:00 Atorvastatin Calcium (Lipitor) 20 mg HS PO Last administered on 04/10/18at 21:11; Admin Dose 20 MG; Start 04/10/18 at 21:00 Acetaminophen (Tylenol Tab) 650 mg Q6H PRN PO MILD PAIN(1-3)OR ELEVATED TEMP Last administered on 04/11/18at 00:26; Admin Dose 650 MG; Start 04/10/18 at 16:00 PANFILO FLORES Apr 11, 2018 12:15
--- NOTE | 2018-04-11 13:23 | CARRPT ---
DATE OF PROCEDURE: 04/11/2018 TYPE OF PROCEDURE: Lexiscan Cardiolite stress test, electrocardiogram portion. INDICATION: Chest pain, assess for ischemia. BASELINE VITAL SIGNS AND ELECTROCARDIOGRAM: Pulse 71, blood pressure 132/70. Electrocardiogram reve als a sinus rhythm, rate of 85, normal axis, normal intervals, isolated T flattened in aVL. DESCRIPTION OF PROCEDURE: The patient underwent standard Lexiscan infusion over 10 seconds followed by radiolabeled tracer. The patient's test was stopped due to completion of protocol. Maximal achie laron blood pressure during the test was 127/63. Maximum heart rate during the test was 100. ELECTROCARDIOGRAM FINDINGS: The patient did not develop any new Lexiscan-induced ST or T-wave change s from baseline abnormalities. Rare PVCs. SYMPTOMS: The patient had no complaints of chest pain or shortness of breath during stress testing. IMPRESSION: 1. No Lexiscan-induced ST or T-wave changes from baseline abnormalities diagnostic for ischemia. 2. No complaints of chest pain or shortness of breath during stress test. 3. Positive premature ventricular contractions during stress testing rarely. 4. Report of nuclear images to follow in separate dictation. Dictated By: PANFILO MCLEAN/CAMILLE Conf#: [id number] DID#: [id number] CC: RAJI MENDEZ MD; DANNA PASTRANA NP;*End*
[2018-04-11] MEDS: ATORVASTATIN 20 MG TAB PO SCH (21:15)
[2018-04-12] VITALS (10 sets, daily range): BP systolic 109–129; BP diastolic 59–80; PULSE 66–84; RESP 20
[2018-04-12] MEDS: traMADol 50 MG TAB PO PRN ×2 (01:30→14:11)
[2018-04-12] MEDS: ACCU-CHEK XX SCH (02:00)
[2018-04-12] MEDS: INSULIN GLARGINE [LANTus] (100 UNITS/ML) SYG SC SCH (07:53)
[2018-04-12] MEDS: INSULIN ASPART [NOVOLOG] 3 ML PEN SC SCH ×2 (07:53→12:00)
[2018-04-12] MEDS: ASPIRIN 81 MG TAB PO SCH (09:07)
[2018-04-12] MEDS: ENOXAPARIN 40 MG/0.4 ML SYG SC SCH (09:09)
--- NOTE | 2018-04-12 10:15 | PDOCDIS ---
Discharge Instructions CONDITION [id number] Patient Condition: [id number] Stable HOME CARE INSTRUCTIONS: [id number] Special Diet: Ltohi0s CARB CONTROL FOLLOW UP/APPOINTMENTS Follow-up Plan Follow-up with primary care physician and manager talent after discharge. DANNA PASTRANA NP Apr 12, 2018 10:15
[2018-04-12] MEDS ORDERED: ATOR20TA65 PO (10:17)
[2018-04-12] MEDS ORDERED: ASPI-831 PO (10:17)
--- NOTE | 2018-04-12 10:25 | DS ---
Date/Time of Note Date/Time of Note DATE: 04/12/18 TIME: 10:23 Discharge Summary Admission/Discharge Info Admit Date/Time Apr 11, 2018 at 11:49 Discharge Date/Time Discharge Diagnosis 1. Chest pain,likely musculoskeletal-ACS ruled out. 2. DMII Consults ,cardiology Procedures 04/11/18 Lexiscan SPECT IMPRESSION: 1. No evidence of perfusion defects. 2. No wall motion abnormalities. 3. The left ventricle ejection fraction at stress is greater than 70%. A call report was made to Dr. Mckoy at 02:53 p.m. on April 11, 2018. 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 Patient had cardiology evaluation. Patient was continued on aspirin and statin. Patient had Lexiscan stress test on 04/11/2018 with no evidence of reversible ischemia. Patient was cleared from cardiology standpoint for outpatient follow- up. Patient with stable vital signs, labs. No further chest pain. She was instructed to follow-up with primary care physician and panel cutter as outpatient. Most likely patient chest pain is secondary to costochondritis. Approximately 60 m spent on coordinating the discharge on this patient. Patient is seen in collaboration with Dr. Shirley. Home Meds Active Scripts Aspirin (Aspirin) 81 Mg Chew, 81 MG PO DAILY, #30 TAB Prov:PASTRANADANNA V. FISHING TOOL TECHNICIAN [employer] 04/12/18 Atorvastatin Calcium (Atorvastatin Calcium) 20 Mg Tablet, 20 MG PO HS, #30 TAB Prov:PASTRANA,DANNA V. FISHING TOOL TECHNICIAN [employer] WELL 04/12/18 Reported Medications Quinapril Hcl (Accupril) 5 Mg Tablet, 2X DAILY 10/20/10 Metformin* (Glucophage*) 850 Mg Tablet, DAILY 10/20/10 Follow-up Plan Follow-up with primary care physician and panel cutter after discharge. Primary Care Provider [facility] Pending Labs Laboratory Tests Test 04/11/18 17:03 04/11/18 21:12 04/12/18 05:23 04/12/18 07:52 Bedside 146 142 155 Glucose mg/dL (70-220) mg/dL (70-220) mg/dL (70-220) White Blood 6.3 Count 10^3/ul (4.8-1 0.8) Red Blood 3.73 Count 10^6/ul (4.20- 5.40) Hemoglobin 11.0 g/dl (12.0-16. 0) Hematocrit 33.1 % (37.0-47.0) Mean 88.7 Corpuscular fl (82.0-101.0 Volume ) Mean 29.5 Corpuscular pg (29.0-33.0) Hemoglobin Mean 33.2 Corpuscular g/dl (32.0-37. Hemoglobin Conc 0) ent Red Cell 13.8 Distribution % (11.5-14.5) Width Platelet Count 233 10^3/UL (140-4 15) Mean Platelet 10.5 Volume fl (7.4-10.4) Immature 0.500 Granulocytes % % (0.001-0.429 ) Neutrophils % 62.1 % (39.0-77.0) Lymphocytes % 27.9 % (15.0-51.0) Monocytes % 7.0 % (0.0-11.0) Eosinophils % 2.2 % (0.0-7.0) Basophils % 0.3 % (0.0-2.0) Nucleated Red 0.0 Blood Cells % /100WBC (0.0-0 .0) Immature 0.030 Granulocytes # 10^3/ul (0.0-0 .031) Neutrophils # 3.9 10^3/ul (1.6-7 .5) Lymphocytes # 1.8 10^3/ul (0.8-2 .9) Monocytes # 0.4 10^3/ul (0.3-0 .9) Eosinophils # 0.1 10^3/ul (0.0-0 .5) Basophils # 0.0 10^3/ul (0.0-0 .1) Nucleated Red 0.0 Blood Cells # 10^3/ul (0.0-0 .0) Sodium Level 140 mmol/L (135-14 4) Potassium 3.7 Level mmol/L (3.5-5. 1) Chloride Level 107 mmol/L (97-110 ) Carbon Dioxide 26 Level mmol/L (21-31) Anion Gap 7 (5-13) Blood Urea 20 Nitrogen mg/dl (7-20) Creatinine 0.51 mg/dl (0.44-1. 00) Est Glomerular mL/min (>60) Filtrat Rate mL/min Glucose Level 170 mg/dl (70-220) Calcium Level 8.8 mg/dl (8.4-10. 2) ADNNA PASTRANA NP Apr 12, 2018 10:25
[2018-04-12] MEDS ORDERED: LORAZEPAM 2 MG INJ IV PRN (11:00)
--- NOTE | 2018-04-12 16:56 | CONS ---
Date/Time of Note Date/Time of Note DATE: 04/12/18 TIME: 16:50 Assessment/Plan Assessment/Plan Assessment/Plan 1. Chest pain: MPI neg for ischemia yesterday.-neg trop x 3/ NL EF 2. Dyslipidemia. 3. Diabetes mellitus. Recc: -Tele -Continue asa/statin OK for d/c. Result Diagram: 04/12/18 0523 04/12/18 0523 Results 24hrs Laboratory Tests Test 04/11/18 17:03 04/11/18 21:12 04/12/18 05:23 04/12/18 07:52 Bedside Glucose 146 142 155 White Blood Count 6.3 Red Blood Count 3.73 L Hemoglobin 11.0 L Hematocrit 33.1 L Mean Corpuscular 88.7 Volume Mean Corpuscular 29.5 Hemoglobin Mean Corpuscular 33.2 Hemoglobin Concent Red Cell 13.8 Distribution Width Platelet Count 233 Mean Platelet Volume 10.5 H Immature 0.500 H Granulocytes % Neutrophils % 62.1 Lymphocytes % 27.9 Monocytes % 7.0 Eosinophils % 2.2 Basophils % 0.3 Nucleated Red Blood 0.0 Cells % Immature 0.030 Granulocytes # Neutrophils # 3.9 Lymphocytes # 1.8 Monocytes # 0.4 Eosinophils # 0.1 Basophils # 0.0 Nucleated Red Blood 0.0 Cells # Sodium Level 140 Potassium Level 3.7 Chloride Level 107 Carbon Dioxide Level 26 Anion Gap 7 Blood Urea Nitrogen 20 Creatinine 0.51 Est Glomerular Filtrat Rate mL/min Glucose Level 170 Calcium Level 8.8 Test 04/12/18 12:22 Bedside Glucose 148 Consultation Date/Type/Reason Admit Date/Time Apr 11, 2018 at 11:49 Initial Consult Date Requesting Provider: DANNA PASTRANA NP 24 HR Interval Summary Free Text/Dictation ROS: No fever, no chills, no nausea, no vomiting, no diarrhea/constipation No recent weight changes No edema, no palpitations No chest pain, no PND, no SOB No dizziness, blurred vision No thirst, no heat or cold intolerance Exam/Review of Systems Vital Signs Vitals Vital Signs Date Temp Pulse Resp B/P (MAP) Pulse Ox O2 O2 Flow FiO2 Time Delivery Rate 04/12/18 68 16:22 04/12/18 98.2 20 109/80 95 Room Air 15:14 (90) Intake and Output 04/11/18 04/11/18 04/12/18 1515:00 23:00 07:00 IntakeIntake Total 350 ml BalanceBalance 350 ml Exam General: WN/WD HEENT: Unicetric/atraumatic/ no assymetry NECK: JVD not elevated, no thyromegaly, carotids revealed normal upstrokes Lymph: no lymphadenopathy HEART: regular with no S3, I/ systolic murmur at apex LUNGS: clear ABD: soft, NT, ND, +BS, no organomegaly Neuro: no deficit SKIN: no leisons EXT: no edema Medications Medications Current Medications IV Flush (NS 3 ml) 3 ml PER PROTOCOL IV ; Start 04/09/18 at 19:30 Ondansetron HCl (Zofran Inj) 4 mg Q6H PRN IV NAUSEA AND/OR VOMITING; Start 04/09/18 at 19:30 Aspirin (Aspirin) 81 mg DAILY PO Last administered on 04/12/18at 09:07; Admin Dose 81 MG; Start 04/10/18 at 09:00 Nitroglycerin (Nitroglycerin (Sl Tab) 0.4 Mg) 1 tab Q5M PRN SL CHEST PAIN; Start 04/09/18 at 19:30 Docusate Sodium (Colace) 100 mg Q12H PRN PO CONSTIPATION; Start 04/09/18 at 19:30 Magnesium Hydroxide (Milk Of Mag) 30 ml DAILY PRN PO CONSTIPATION; Start 04/09/18 at 19:30 Enoxaparin Sodium (Lovenox) 40 mg DAILY SC Last administered on 04/12/18at 09:09; Admin Dose 40 MG; Start 04/10/18 at 09:00 Ketorolac Tromethamine (Toradol) 15 mg Q6H PRN IV PAIN LEVEL 1-3 Last administered on 04/09/18at 20:13; Admin Dose 15 MG; Start 04/09/18 at 19:30; Stop 04/12/18 at 19:29 Tramadol HCl (Ultram) 50 mg Q6H PRN PO MODERATE PAIN LEVEL 4-6 Last administered on 04/12/18at 14:11; Admin Dose 50 MG; Start 04/09/18 at 19:30 Diagnostic Test (Pha) (Accu-Chek) 1 ea 02 XX ; Start 04/10/18 at 02:00 Insulin Aspart (Novolog Insulin Pen) NOVOLOG *MILD* ALGORITHM WITH MEALS BEDTIME SC ; Start 04/09/18 at 21:00 Miscellaneous Information 1 ea NOTE XX ; Start 04/09/18 at 22:00 Glucose (Glutose) 15 gm Q15M PRN PO DECREASED GLUCOSE; Start 04/09/18 at 22:00 Glucose (Glutose) 22.5 gm Q15M PRN PO DECREASED GLUCOSE; Start 04/09/18 at 22:00 Dextrose (D50w Syringe) 25 ml Q15M PRN IV DECREASED GLUCOSE; Start 04/09/18 at 22:00 Dextrose (D50w Syringe) 50 ml Q15M PRN IV DECREASED GLUCOSE; Start 04/09/18 at 22:00 Glucagon (Glucagen) 1 mg Q15M PRN IM DECREASED GLUCOSE; Start 04/09/18 at 22:00 Glucose (Glutose) 15 gm Q15M PRN BUCCAL DECREASED GLUCOSE; Start 04/09/18 at 22:00 Insulin Glargine (Lantus) 10 units DAILY@0800 SC ; Start 04/10/18 at 20:00 Atorvastatin Calcium (Lipitor) 20 mg HS PO Last administered on 04/11/18at 21:15; Admin Dose 20 MG; Start 04/10/18 at 21:00 Acetaminophen (Tylenol Tab) 650 mg Q6H PRN PO MILD PAIN(1-3)OR ELEVATED TEMP Last administered on 04/11/18at 00:26; Admin Dose 650 MG; Start 04/10/18 at 16:00 Lorazepam (Ativan) 0.5 mg Q6H PRN IV ANXIETY; Start 04/12/18 at 11:00 ANAMARIA MARISCAL MD Apr 12, 2018 16:56
--- NOTE | 2018-04-13 01:50 | RADRPT ---
Vent Rate: 109 bpm RR Interval: 0 msec NE Interval: 150 msec QRS Duration: 78 msec QT Interval: 316 msec QTC Interval: 425 msec P-R-T [place]: 48 - 54 - 58 degrees Sinus tachycardia Otherwise normal ECG Electronically Signed By: Immanuel Elaine [id number]
--- NOTE | 2018-04-13 01:51 | RADRPT ---
Vent Rate: 75 bpm RR Interval: 0 msec [place] Interval: 156 msec QRS Duration: 84 msec QT Interval: 386 msec QTC Interval: 431 msec P-R-T [place]: 39 - 28 - 37 degrees Normal sinus rhythm Normal ECG Electronically Signed By: Immanuel Elaine [id number]
== END 2018-04-12 17:40 | disposition home or self-care (01) | DRG 206 ==
LOC: E/R 13:37 → 6WM 17:46 → OBSVTOIN 04-11 11:49
PROVIDERS: ADMIT Internal Medicine; ATTEND Internal Medicine
DX: M94.0 Chondrocostal junction syndrome [Tietze] (principal); E11.9 Type 2 diabetes mellitus without complications; I10 Essential (primary) hypertension; E78.5 Hyperlipidemia, unspecified; R50.9 Fever, unspecified; R07.9 Chest pain, unspecified; Z23 Encounter for immunization
CPT/HCPCS: 36415; 71045; 71275; 78452; 80048; 80053; 80061; 81001; 81003; 82550; 82553; 82962; 83036; 83735; 83880; 84443; 84484; 85025; 85378; 85610; 85730; 87040; 87086; 87502; 90686; 93005; 93017; 93306; 93970; G0378; A9500; A9505; C9113; G0008; J1650; J1815; J1885; J2785; J7030; Q9967

== ENCOUNTER → 2019-01-24 | Outpatient (CLI) | payer MEDICARE, OTHER ==
[~2019-01-24] MED LIST changes: +ASPI-831 PO; +ATOR20TA65 PO; +IOHEXOL 300MG/ML 150 ML BTL ONE; +METOPROLOL 5 MG INJ ONE; +NITROGLYCERIN AEROSOL (4.9 GM) ONE; +SOD CHLORIDE 0.9% 500 ML ONE
== END | disposition home or self-care (01) ==
LOC: C/S 10:09
PROVIDERS: ATTEND Nuclear Medicine Nuclear Cardiology
DX: R94.39 Abnormal result of other cardiovascular function study (principal); R07.9 Chest pain, unspecified; R06.02 Shortness of breath
CPT/HCPCS: 75571; 75574; J7040; Q9967